=== PATIENT | male | born 1955 | race Caucasian/White ===

== ENCOUNTER 2020-08-11 09:57 | Outpatient (CLI) | payer MEDICARE ==
--- NOTE | 2020-08-11 10:46 | CT ---
CT of thecervical spine without contrast: 08/11/2020 COMPARISON:Cervical spine CT myelogram 04/08/2016 HISTORY:Cervical pain, right upper extremity radiculopathy, fall 2 months ago TECHNIQUE: Serial axial CT imaging at2 mm intervals from theskull base through lung apices without co ntrast. Coronal and sagittal reformatted imaging obtained Findings:Evaluation for central canal and/or neural foraminal stenosis is limited on routine CT. Proximal ICA atherosclerotic calcification noted bilaterally, left greater than right. Anterior discectomy and fusion hardware noted at C5-6. C2-3: No osseous cause of significant central canal or neural foraminal stenosis. C3-4: No osseous cause of significant central canal or neural foraminal stenosis. C4-5: Probable stable mild disc bulge. Bilateral facet hypertrophy, right greater than left. Mild delma ateral neural foraminal stenosis, right greater than left. C5-6: No osseous cause of significant central canal or neural foraminal stenosis C6-7: No osseous cause of significant central canal or neural foraminal stenosis. C7-T1: Mild bilateral facet hypertrophy. Probable mild right neural foraminal stenosis. No osseous ca use of significant central canal or left neural foraminal stenosis. No worrisome lytic or blastic bone lesion. No acute fracture or dislocation. Impression:Postoperative and degenerative changes within the cervical spine as detailed above. Follow -up CT myelogram suggested if clinically warranted.
== END 2020-08-11 09:58 | disposition home or self-care (01) ==
LOC: BICCT 09:57
PROVIDERS: ATTEND Neurological Surgery
DX: M54.2 Cervicalgia (principal); M47.812 Spondylosis without myelopathy or radiculopathy, cervical region; Z98.1 Arthrodesis status
CPT/HCPCS: 72125

== ENCOUNTER 2022-10-07 21:23 | Observation (INO) | payer MEDICARE ==
[2022-10-07 22:41] LABS: #Lymphocytes 0.9 thou/uL (1.20-3.40); #Monocytes 0.7 thou/uL (0.11-0.59); #Neutrophils 7.2 thou/uL (1.40-6.50); %Basophils 0.4 % (0.0-1.0); %Eosinophils 0.3 % (0.0-10.0); %Lymphocytes 9.8 % (21.0-51.0); %Monocytes 7.4 % (0.0-10.0); %Neutrophils 82.1 % (42.0-75.0); Hemoglobin 13.6 g/dL (14.0-18.0); Mean Corpuscular HGB CONC 33.2 g/dL (32.0-36.0); Mean Corpuscular Hemoglobin 32.1 pg (27.0-31.0); Mean Corpuscular Volume 96.5 fl (78.0-98.0); Mean Platelet Volume 8.1 fL (7.4-10.4); Platelet Count 239 10x3/uL (130-400); RBC Distribution Width 12.8 % (11.5-14.5); Red Blood Cell (RBC) Count 4.25 mill/uL (4.70-6.10); White Blood Cell (WBC) Count 8.8 10x3/uL (4.8-10.8)
[2022-10-07 23:00] LABS: Anion Gap 12 mmol/L (10-20); BUN (Urea Nitrogen) 15 mg/dL (8.4-25.7); Calc. Creatinine Clearance 0 mL/min (70-130); Carbon Dioxide 24 mmol/L (23-31); Chloride 107 mmol/L (98-107); Estimated GFR 93; Glucose 114 mg/dL (80-115); Potassium 4.2 mmol/L (3.5-5.1); Sodium 139 mmol/L (136-145)
[2022-10-07 23:27] LABS: CKMB 11.6 ng/mL (0-6.6)
[2022-10-08 01:23] LABS: Troponin I 2.495 ng/mL (< 0.028)
[2022-10-08] MEDS ORDERED: Aspirin Chewable 81 MG TAB ONE (01:35)
[2022-10-08 03:32] LABS: CKMB 17.8 ng/mL (0-6.6)
[2022-10-08] MEDS ORDERED: Acetaminophen 325 MG TAB PO PRN (03:35)
[2022-10-08] MEDS ORDERED: Ondansetron PF 4 MG/2 ML Vial IVP PRN (03:35)
[2022-10-08] MEDS ORDERED: Ondansetron ODT 4 MG TAB PO PRN (03:35)
[2022-10-08] MEDS ORDERED: Acetaminophen 650 MG Suppository PR PRN (03:35)
[2022-10-08 04:12] LABS: SARS-CoV-2 NAA Rapid Test Not Detected (NotDetected)
[2022-10-08 05:15] LABS: Troponin I 4.257 ng/mL (< 0.028)
[2022-10-08] MEDS ORDERED: Nitroglycerin 0.4 MG TAB (25 Tab Bottle) SL PRN (06:49)
[2022-10-08] MEDS: Sodium Chloride 0.9% 1,000 ML IV SCH ×2 (08:12→19:25)
[2022-10-08] MEDS ORDERED: Aspirin 81 mg Enteric Coated Tablet PO SCH (09:00)
[2022-10-08] MEDS ORDERED: Prasugrel 10 MG TAB PO SCH (09:00)
[2022-10-08 09:30] LABS: Troponin I 6.042 ng/mL (< 0.028)
[2022-10-08] MEDS ORDERED: NOREPINEPHRINE 8 MG/250 ML-D5W 0 ML ONE (09:33)
[2022-10-08] MEDS ORDERED: Prasugrel 10 MG TAB ONE (10:58)
[2022-10-08] MEDS ORDERED: Aspirin 81 mg Enteric Coated Tablet ONE (10:58)
[2022-10-08 14:19] VITALS: BMI 30.3
[2022-10-08 15:53] LABS: Troponin I 6.175 ng/mL (< 0.028)
[2022-10-08 15:55] VITALS: BP 138/63
[2022-10-08 17:14] VITALS: TEMP 97.7
[2022-10-08] MEDS ORDERED: Rosuvastatin 20 MG TAB PO SCH (21:00)
[2022-10-08] MEDS ORDERED: Metoprolol Tartrate 25 MG TAB PO SCH (21:00)
== END 2022-10-08 19:05 | disposition home or self-care (01) ==
LOC: ERS 21:23 → ERHOLD 10-08 02:55 → 2SW 10-08 03:08
PROVIDERS: ADMIT Internal Medicine; ATTEND Internal Medicine
DX: R55 Syncope and collapse (principal); I25.10 Atherosclerotic heart disease of native coronary artery without angina pectoris; I25.2 Old myocardial infarction; I10 Essential (primary) hypertension; E78.00 Pure hypercholesterolemia, unspecified; E66.9 Obesity, unspecified; Z68.30 Body mass index [BMI] 30.0-30.9, adult; Z79.82 Long term (current) use of aspirin; Z79.899 Other long term (current) drug therapy; Z88.0 Allergy status to penicillin; Z95.5 Presence of coronary angioplasty implant and graft; Z98.84 Bariatric surgery status; Z20.822 Contact with and (suspected) exposure to COVID-19
CPT/HCPCS: 71045; 80048; 82553 ×2; 84484 ×3; 85025; 93005; 99285; U0002; 36415; G0378; J7050